=== PATIENT | male | born 1970 | race Two or more races ===

== ENCOUNTER 2023-08-13 05:11 | Emergency (ER) | payer OTHER ==
[~2023-08-13] VITALS: Ht 172.7 cm; Wt 72.6 kg
[~2023-08-13 05:11] MED LIST: KETO10TA2 PO; ORPH100T PO
== END 2023-08-13 07:58 | disposition home or self-care (01) ==
LOC: ER 05:12
DX: R07.89 Other chest pain (principal); K21.9 Gastro-esophageal reflux disease without esophagitis